=== PATIENT | male | born 1970 | race Caucasian/White ===

== ENCOUNTER 2022-06-11 14:00 | Emergency (ER) | payer OTHER, SELFPAY ==
--- NOTE | ~2022-06-11 | XR_ITS ---
EXAMINATION: XR chest 2V DATE: 06/11/2022 14:50 INDICATION: Chest burning TECHNIQUE: frontal and lateral views of the chest were obtained. COMPARISON: None FINDINGS: The lungs are clear with no focal airspace opacities, pulmonary edema, pleural effusion or pneumothor ax. The cardiomediastinal silhouette is normal. Mild thoracic spondylosis. IMPRESSION: 1. No acute cardiopulmonary disease. Reviewed, dictated and finalized at location A.
[2022-06-11 14:18] VITALS: BP 121/90; PULSE 71; RESP 16; TEMP 36.2; O2SAT 99
--- NOTE | 2022-06-11 14:27 | ECG_ITS ---
Measurements Intervals [place] Rate: 66 P: 40 [place]: 185 QRS: 40 QRSD: 85 T: 34 QT: 386 QTc: 406 Interpretive Statements SINUS RHYTHM BASELINE ARTIFACT- II, III, AVF NORMAL ECG NO PREVIOUS ECG AVAILABLE FOR COMPARISON Electronically Signed On 06-11-2022 15:08:11 CDT by Brannon Alvarez D.O.
--- NOTE | 2022-06-11 14:31 | ED.CHESTPAIN ---
HPI - Chest Pain General Chief Complaint: Unspecified Stated Complaint: Chest Burning Time Seen by Provider: 06/11/22 14:25 History of Present Illness HPI narrative: Ulises Anna is a 52 yo male with no PMH who is in [place] on work assignment and has had burning across chest wall that occurs most with eating are after smoking marijuana. Related Data Allergies Allergy/AdvReac Type Severity Reaction Status Date / Time No Known Allergies Allergy Verified 06/11/22 14:06 Review of Systems Review of Systems: CONSTITUTIONAL: Denies fever, chills, sweats. EYES: Denies visual changes, redness, discharge. ENT: Denies rhinorrhea, congestion, sore throat, otalgia. CARDIOVASCULAR: Denies chest pain, palpitations, edema. Chest burning RESPIRATORY: Denies dyspnea, wheezing, cough GASTROINTESTINAL: Denies abdominal pain, nausea, vomiting, diarrhea. GENITOURINARY: Denies dysuria, hematuria, abnormal discharge SKIN: Denies rash or itching. NEUROLOGIC: Denies numbness, or focal weakness. PSYCHIATRIC: Denies anxiety or depression. COUNT INCLUDES THE [facility] Social History Social History (Updated 06/11/22 @ 14:45 by Ting Landis CNP) Smoking status: Never smoker Substance use: current Substance use type: marijuana Comments At time of signature, I agree with nursing past medical, surgical, social and family history. There is no relevant family history pertinent to the presenting complaint. Exam Narrative: GENERAL: This is a well-nourished, well-developed patient, in mild distress. HEAD: normocephalic, atraumatic. EYES: Sclera clear/white. Vision is grossly intact. EARS: External ears normal, . Hearing grossly intact. NOSE: External nose normal without nasal discharge, nares without redness, no rhinorrhea. THROAT: Mucous membranes moist, NECK: Neck supple, non-tender CARDIOVASCULAR: Regular rate and rhythm without murmurs, gallops, or rubs. RESPIRATORY: Clear to auscultation. Breath sounds equal bilaterally. No wheezes, rales, or rhonchi. GASTROINTESTINAL: Not done SKIN: warm, intact with no suspicious lesions or rash, good texture and turgor. NEURO: awake, alert, and oriented to person, place and time. There were no obvious focal neurologic abnormalities. Steady gait EXTREMITIES: Normal range of motion. BACK: Nontender without deformity Course Course Emergency Course: Patient comes here with complaints of chest burning for up to a month. Patient has been working in sales for 2 months and states that he smokes no cigarettes for years has marijuana occasionally has some chest burning that is sometimes related to eating. EKG is normal sinus rhythm with a rate of 66 he has VT interval of 165 with a QT ratio less than four 386/400 no deviation Chest x-ray shows lungs are clear with no focal airspace opacities pulmonary edema or pneumothorax, no acute cardiopulmonary disease Dr. Jiménez Called and referred to have blood work panel at [facility] , given a prescription of Protonix and he is to follow up afterwards Level of Care: Express Care Visit Vital Signs Vital signs: Vital Signs Temperature 97.2 F L 06/11/22 14:18 Pulse Rate 71 06/11/22 14:18 Respiratory Rate 16 06/11/22 14:18 Blood Pressure 121/90 06/11/22 14:18 Pulse Oximetry 99 06/11/22 14:18 Oxygen Delivery Room Air 06/11/22 14:18 Temperature 97.2 F L 06/11/22 14:33 Pulse Rate 71 06/11/22 14:33 Respiratory Rate 16 06/11/22 14:33 Blood Pressure 121/90 06/11/22 14:33 Pulse Oximetry 99 06/11/22 14:33 Oxygen Delivery Room Air 06/11/22 14:33 MDM - Chest Pain Differential Diagnosis Differential diagnosis: Likely stable angina, chest pain and other (GERD) Critical Care Time Critical Care Time Critical Care Time: No Discharge Plan Discharge Clinical Impression: Anterior chest wall pain Patient Disposition: Home, Self-Care Condition: Stable Instructions: Chest Pain (DC) Additional Instructions: Take Protonix as prescribed
[2022-06-11 14:33] VITALS: BP 121/90; PULSE 71; RESP 16; TEMP 36.2; O2SAT 99
[2022-06-11] MEDS: FAMOTIDINE 20 MG TABLET 40 MG PO (14:37)
== END 2022-06-11 15:22 | disposition home or self-care (01) ==
PROVIDERS: Emergency Provider Nurse Practitioner
DX: R07.89 Other chest pain (principal); F12.90 Cannabis use, unspecified, uncomplicated
CPT/HCPCS: 71046; 93005; 99203; A9270; G0463